=== PATIENT | female | born 1990 | race Caucasian/White ===

== ENCOUNTER 2016-09-08 09:27 | Outpatient (CLI) ==
[2016-09-08 09:44] LABS: BASOPHILS % (AUTO) 0.6 % (0.0-3.0); EOSINOPHILS # (AUTO) 0.3 K/ul (0.0-0.7); EOSINOPHILS % (AUTO) 5.1 % (0.0-7.0); HEMATOCRIT 40.4 % (37.0-47.0); HEMOGLOBIN 13.2 g/dl (12.0-16.0); IMMATURE GRANULOCYTE % (AUTO) 0.2 % (0.0-5.0); LYMPHOCYTES # (AUTO) 1.2 K/uL (0.60-3.4); LYMPHOCYTES % (AUTO) 23.9 (10.0-50.0); MEAN CORPUSCULAR HEMOGLOBIN 28.6 pg (27.0-31.0); MEAN CORPUSCULAR HGB CONC 32.7 (31.8-35.4); MEAN CORPUSCULAR VOLUME 87.6 fl (81.0-99.0); MONOCYTES # (AUTO) 0.4 K/uL (0.4-2.0); MONOCYTES % (AUTO) 7.3 (0-10); NEUTROPHILS # (AUTO) 3.2 K/ul (2.0-6.9); NEUTROPHILS % (AUTO) 62.9; PLATELET COUNT 115 10^3/uL (140-440); RED BLOOD COUNT 4.61 10^6/ul (4.20-5.40); WHITE BLOOD COUNT 5.06 K/ul (4.6-10.2)
[2016-09-08 10:24] LABS: ALBUMIN 3.5 g/dL (3.4-5.0); ALBUMIN/GLOBULIN RATIO 1.06; BILIRUBIN,TOTAL 0.71 mg/dL (0.00-1.20); BUN/CREATININE RATIO 30.1; CALCIUM 8.8 mg/dL (8.2-10.2); CREATININE 0.93 mg/dL (0.60-1.30); FERRITIN 44.95 ng/mL (4.63-204.00); TOTAL PROTEIN 6.8 g/dL (6.4-8.2)
== END 2016-09-08 09:28 | disposition home or self-care (01) ==
LOC: LAB 09:27
PROVIDERS: ATTEND Internal Medicine Hematology & Oncology
DX: D68.61 Antiphospholipid syndrome (principal); D69.6 Thrombocytopenia, unspecified; D64.9 Anemia, unspecified; R21 Rash and other nonspecific skin eruption
CPT/HCPCS: 36415; 80053; 82728; 83540; 83550; 83615; 85025